=== PATIENT | male | born 1980 | race Two or more races ===

== ENCOUNTER 2021-09-21 21:01 | Emergency (ER) | payer BC ==
[~2021-09-21] VITALS: Ht 167.6 cm; Wt 63.5 kg
[2021-09-21] MEDS ORDERED: TRUVADA 200 MG1 EACH (21:24)
[2021-09-21] MEDS ORDERED: CYMBALTA60 MG (21:25)
== END 2021-09-21 22:49 | disposition home or self-care (01) ==
LOC: ER 21:01
DX: A53.9 Syphilis, unspecified (principal)